=== PATIENT | female | born 2000 | race Caucasian/White ===

== ENCOUNTER 2022-02-07 02:45 | Emergency (ER) | payer MEDICAID | END 2022-02-07 03:50 | disposition home or self-care (01) | LOC: LB.ED 02:45 | DX: N93.9 Abnormal uterine and vaginal bleeding, unspecified (principal); Z79.899 Other long term (current) drug therapy | CPT/HCPCS: 36415; 81025; 85025; 85610; 85730; 99281; 99284 ==

== ENCOUNTER 2022-12-16 19:35 | Emergency (ER) | payer MEDICAID ==
[2022-12-16] MEDS ORDERED: Ondansetron 4 MG/2 ML SDV IVPUSH ONE (19:45)
[2022-12-16] MEDS ORDERED: Sodium Chloride 0.9% 1,000 ML IV SCH (20:30)
[2022-12-16] MEDS ORDERED: Ondansetron 4 MG Tab.DIS ONE (21:00)
== END 2022-12-16 22:00 | disposition home or self-care (01) ==
LOC: LB.ED 19:35
DX: O21.0 Mild hyperemesis gravidarum (principal); O99.211 Obesity complicating pregnancy, first trimester; Z87.891 Personal history of nicotine dependence; Z3A.09 9 weeks gestation of pregnancy
CPT/HCPCS: 96361; 96374; 99283-25; J2405; J7030; Q0162

== ENCOUNTER 2023-01-22 10:48 | Emergency (ER) | payer MEDICAID ==
[2023-01-22] MEDS ORDERED: Sodium Chloride 0.9% 10 ML Syringe FLUSH PRN (11:02)
[2023-01-22] MEDS ORDERED: Sodium Chloride 0.9% 1,000 ML IV SCH (11:15)
[2023-01-22] MEDS ORDERED: Ondansetron 4 MG/2 ML SDV IVPUSH ONE (11:17)
[2023-01-22 11:30] LABS: HEMATOCRIT 39.9 % (37.0-47.0); HEMOGLOBIN 13.6 g/dL (11.5-16.5); MEAN CORPUSCULAR HEMOGLOBIN 29.6 pg (27.0-32.0); MEAN CORPUSCULAR HGB CONC 34.1 g/dL (31.0-35.0); MEAN PLATELET VOLUME 12.7 fL (6.0-10.0); RED BLOOD CELL COUNT 4.59 M/uL (3.80-5.80); RED CELL DISTRIBUTION WIDTH 14.6 % (11.0-16.0); WHITE BLOOD CELL COUNT,WBC 11.3 K/uL (4.0-11.0)
[2023-01-22 11:35] LABS: ANION GAP 16.6 mmol/L (5.0-15.0); BLOOD UREA NITROGEN,BUN 4 mg/dL (8-26); BUN/CREATININE RATIO 7.1 (6-25); CALCIUM 9.1 mg/dL (8.5-10.1); CARBON DIOXIDE,CO2 23.7 mmol/L (21.0-32.0); CHLORIDE,CL 99 mmol/L (98-107); CREATININE 0.56 mg/dL (0.55-1.02); ESTIMATED GFR 134 mL/min (>60); GLUCOSE RANDOM 79 mg/dL (74-100); MAGNESIUM 1.9 mg/dL (1.8-2.4); POTASSIUM,K 3.3 mmol/L (3.5-5.1); SODIUM,NA 136 mmol/L (136-145)
[2023-01-22] MEDS ORDERED: Ondansetron 4 MG/2 ML SDV ONE (11:37)
[2023-01-22] MEDS ORDERED: Potassium Chloride 20 MEQ Tab.ER PO ONE (11:47)
[2023-01-22 12:47] LABS: APPEARANCE,URINE SLIGHTLY CLOUDY (CLEAR); BILIRUBIN,URINE SMALL (NEGATIVE); COLOR,URINE YELLOW; GLUCOSE,URINE NEGATIVE (NEGATIVE); KETONES,URINE >=160 mg/dL (NEGATIVE); LEUKOCYTE ESTERASE,URINE NEGATIVE (NEGATIVE); NITRITE,URINE NEGATIVE (NEGATIVE); OCCULT BLOOD,URINE NEGATIVE (NEGATIVE); PROTEIN,URINE 30 mg/dL (NEGATIVE)
[2023-01-22] MEDS ORDERED: Promethazine 25 MG Tab PO STA (12:52)
[2023-01-22 12:58] LABS: RBC,URINE 0-5 /HPF; WBC,URINE 0-5 /HPF
[2023-01-22 12:59] LABS: EPITHELIAL CELLS,URINE MODERATE /HPF
[2023-01-22] MEDS ORDERED: Promethazine 25 MG Tab ONE (13:03)
== END 2023-01-22 13:47 | disposition home or self-care (01) ==
LOC: LB.ED 10:48
DX: O21.0 Mild hyperemesis gravidarum (principal); O99.281 Endocrine, nutritional and metabolic diseases complicating pregnancy, first trimester; E87.6 Hypokalemia; O99.211 Obesity complicating pregnancy, first trimester; Z3A.13 13 weeks gestation of pregnancy
CPT/HCPCS: 36415; 80048; 81001; 83735; 85027; 96361; 96374; 99284-25; A9270-GY; J2405; J7030

== ENCOUNTER 2023-02-03 16:09 | Emergency (ER) | payer MEDICAID ==
[2023-02-03] MEDS ORDERED: Sodium Chloride 0.9% 1,000 ML IV ONE (16:23)
[2023-02-03] MEDS ORDERED: Sodium Chloride 0.9% 10 ML Syringe FLUSH PRN (16:24)
[2023-02-03 16:31] LABS: BASOPHILS ABSOLUTE AUTO 0.01 K/uL (0.02-0.10); BASOPHILS PERCENT AUTO 0.1 % (0.0-0.5); EOSINOPHILS ABSOLUTE AUTO 0.06 K/uL (0.04-0.40); EOSINOPHILS PERCENT AUTO 0.7 % (1.0-5.0); HEMATOCRIT 41.2 % (37.0-47.0); HEMOGLOBIN 14.1 g/dL (11.5-16.5); LYMPHOCYTES PERCENT AUTO 17.4 % (20.0-40.0); MEAN CORPUSCULAR HEMOGLOBIN 29.4 pg (27.0-32.0); MEAN CORPUSCULAR HGB CONC 34.2 g/dL (31.0-35.0); MEAN CORPUSCULAR VOLUME 86 fL (76-96); MEAN PLATELET VOLUME 12.8 fL (6.0-10.0); MONOCYTES ABSOLUTE AUTO 0.64 K/uL (0.20-0.80); MONOCYTES PERCENT AUTO 6.9 % (3.0-10.0); NEUTROPHILS PERCENT AUTO 74.9 % (45.0-70.0); PLATELET COUNT,PLT 152 K/uL (150-500); RED BLOOD CELL COUNT 4.79 M/uL (3.80-5.80); RED CELL DISTRIBUTION WIDTH 14.7 % (11.0-16.0); WHITE BLOOD CELL COUNT,WBC 9.2 K/uL (4.0-11.0)
[2023-02-03 16:51] LABS: ALBUMIN 3.7 g/dL (3.4-5.0); ANION GAP 13.8 mmol/L (5.0-15.0); BILIRUBIN TOTAL 0.4 mg/dL (0.0-1.0); BUN/CREATININE RATIO 7.8 (6-25); CARBON DIOXIDE,CO2 23.9 mmol/L (21.0-32.0); CREATININE 0.51 mg/dL (0.55-1.02); EST CRCL DRUG DOSING (CG) 177.5 mL/min; POTASSIUM,K 3.7 mmol/L (3.5-5.1); PROTEIN TOTAL,TP 7.5 g/dL (6.4-8.2)
[2023-02-03] MEDS ORDERED: Ondansetron 4 MG/2 ML SDV IVPUSH ONE (17:06)
[2023-02-03] MEDS ORDERED: Ondansetron 4 MG/2 ML SDV ONE (17:07)
== END 2023-02-03 17:50 | disposition home or self-care (01) ==
LOC: LB.ED 16:09
DX: O21.0 Mild hyperemesis gravidarum (principal); E66.9 Obesity, unspecified; Z3A.14 14 weeks gestation of pregnancy
CPT/HCPCS: 36415; 80053; 85025; 96361; 96374; 99284; 99284-25; J2405; J7030

== ENCOUNTER 2023-02-04 15:50 | Emergency (ER) | payer MEDICAID ==
[2023-02-04] MEDS: Prochlorperazine 10 MG Tab PO ONE (16:49)
[2023-02-04 16:52] LABS: APPEARANCE,URINE CLEAR (CLEAR); BILIRUBIN,URINE SMALL (NEGATIVE); COLOR,URINE YELLOW; GLUCOSE,URINE NEGATIVE (NEGATIVE); KETONES,URINE >=160 mg/dL (NEGATIVE); LEUKOCYTE ESTERASE,URINE TRACE (NEGATIVE); NITRITE,URINE NEGATIVE (NEGATIVE); OCCULT BLOOD,URINE TRACE-INTACT (NEGATIVE); PH,URINE 6.5 (5.0-8.0); PROTEIN,URINE 30 mg/dL (NEGATIVE)
[2023-02-04 16:57] LABS: RBC,URINE 0-5 /HPF; SQUAMOUS EPITHELIAL CELLS,UR MODERATE /HPF
[2023-02-04] MEDS ORDERED: Sodium Chloride 0.9% 10 ML Syringe FLUSH PRN (17:15)
[2023-02-04] MEDS: Sodium Chloride 0.9% 1,000 ML IV ONE (17:38)
[2023-02-04] MEDS: Prochlorperazine 10 MG/2 ML SDV IVPUSH ONE (18:27)
[2023-02-04] MEDS: Prochlorperazine 10 MG/2 ML SDV ONE (18:31)
[2023-02-04] MEDS ORDERED: Amoxicillin 500 MG Cap ONE (19:10)
[2023-02-04 19:40] VITALS: BP 108/68; PULSE 79
== END 2023-02-04 19:20 | disposition home or self-care (01) ==
LOC: LB.ED 15:50
DX: O23.42 Unspecified infection of urinary tract in pregnancy, second trimester (principal); N39.0 Urinary tract infection, site not specified; O99.212 Obesity complicating pregnancy, second trimester; Z3A.14 14 weeks gestation of pregnancy
CPT/HCPCS: 81001; 87086; 96361; 96374; 99283-25; 99284; A9270-GY; J0780; J7030; Q0164